=== PATIENT | male | born 1945 | race Caucasian/White ===

== ENCOUNTER 2017-07-29 14:16 | Emergency (ER) | payer MEDICARE ==
[2017-07-29 14:32] VITALS: BP 198/122
[2017-07-29] MEDS ORDERED: Sodium Chloride 0.9% 10 ML Syringe FLUSH PRN (14:43)
--- NOTE | 2017-07-29 15:03 | EDM.PDOC ---
ED HPI GENERAL MEDICAL PROBLEM - General Chief Complaint: Cardiovascular Problem Stated Complaint: SENT BY [facility] Time Seen by Provider: 07/29/17 14:37 Source of Information: Reports: Patient, Provider History Limitations: Reports: No Limitations - History of Present Illness INITIAL COMMENTS - FREE TEXT/NARRATIVE: The patient presents from home by the recommendation of his primary care doctor Dr Villela. He was seeing her for dysnea. This has been going on for weeks. She did an echo that showed a small to moderate pericardial effusion. They did not get a good look at the aortic arch so a CT of his chest was down. The CT of his chest showed a large pericardial effusion and moderate bilateral pleural effusions, greater on the right. Dr Villela got those results today and called the cardiothoracic surgeon at [facility] in [place] and he recommended the patient go to the ER and then be transferred to [facility]. He has shortness of breath with exertion. He has no chest pain. He has no abdominal pain, nausea or vomiting. He has no fever, chills, or cough. Onset: Gradual Duration: Week(s): Severity: Moderate Improves with: Reports: Immobilization Worsens with: Reports: Movement Associated Symptoms: Reports: Shortness of Breath. Denies: Chest Pain, Cough, Fever/Chills, Headaches, Loss of Appetite, Nausea/Vomiting - Related Data Allergies Allergy/AdvReac Type Severity Reaction Status Date / Time No Known Allergies Allergy Verified 06/05/15 14:04 Home Meds: Home Meds Finasteride 5 mg PO DAILY 06/05/15 [History] Mupirocin Oint [Bactroban Oint] 22 gm TOP TID #1 tube 06/05/15 [Rx] Furosemide [Lasix] 40 mg PO DAILY 07/29/17 [History] Past Medical History Cardiovascular History: Reports: Arrhythmia, Heart Failure Genitourinary History: Reports: Other (See Below) Other Genitourinary History: Prostate reduction Social & Family History - Family History Family Medical History: Noncontributory - Tobacco Use Smoking Status *Q: Former Smoker Years of Tobacco use: 20 Packs/Tins Daily: 0.5 Used Tobacco, but Quit: Yes Month Tobacco Last Used: 2 - Caffeine Use Caffeine Use: Reports: Coffee, Soda - Recreational Drug Use Recreational Drug Use: No ED ROS GENERAL - Review of Systems Review Of Systems: See Below Constitutional: Reports: No Symptoms HEENT: Reports: No Symptoms Respiratory: Reports: Shortness of Breath Cardiovascular: Reports: Edema. Denies: Chest Pain Endocrine: Reports: No Symptoms GI/Abdominal: Reports: No Symptoms ED EXAM, GENERAL - Physical Exam Exam: See Below Exam Limited By: No Limitations General Appearance: Alert, No Apparent Distress Ears: Normal External Exam Nose: Normal Inspection Head: Atraumatic, Normocephalic Neck: Normal Inspection Respiratory/Chest: No Respiratory Distress, Lungs Clear, Normal Breath Sounds Cardiovascular: Regular Rate, Rhythm, No Edema, No Murmur GI/Abdominal: Normal Bowel Sounds, Soft, Non-Tender, No Organomegaly Back Exam: Normal Inspection Extremities: Normal Inspection Neurological: Alert, Oriented, No Motor/Sensory Deficits EKG INTERPRETATION EKG Date: 07/29/17 Time: 14:34 Rhythm: Other (Sinus tachycardia) Rate (Beats/Min): 101 [place]: Normal P-Wave: Present QRS: Normal ST-T: Other (Flattened waves in the lateral leads) QT: Normal Course - Vital Signs Last Recorded V/S: Last Vital Signs Temp 97.6 F 07/29/17 14:30 Pulse 104 H 07/29/17 14:30 Resp 18 07/29/17 14:30 BP 198/122 H 07/29/17 14:30 Pulse Ox 95 07/29/17 14:30 - Orders/Labs/Meds Orders: Active Orders 24 hr Category Date Time Status Cardiac Monitoring [RC] . DIRECTED Care 07/29/17 14:43 Active EKG Documentation Completion [RC] STAT Care 07/29/17 14:44 Active Peripheral IV Care [RC] . DIRECTED Care 07/29/17 14:44 Active CBC WITH AUTO DIFF [HEME] Stat Lab 07/29/17 14:43 Ordered COMPREHENSIVE METABOLIC PN,CMP [CHEM] Stat Lab 07/29/17 14:43 Ordered PRO B-TYPE NATRIUR PEPT,BNPPRO [CHEM] Stat Lab 07/29/17 14:45 Ordered TROPONIN I [CHEM] Stat Lab 07/29/17 14:43 Ordered Sodium Chloride 0.9% [Saline Flush] Med 07/29/17 14:43 Active 10 ml FLUSH ASDIRECTED PRN Peripheral IV Insertion Adult [OM.PC] Stat Oth 07/29/17 14:43 Ordered Medication Orders Sodium Chloride (Saline Flush) 10 ml FLUSH ASDIRECTED PRN PRN Reason: Keep Vein Open Meds: Medications Generic Name Dose Route Start Last Admin Trade Name Freq PRN Reason Stop Dose Admin Sodium Chloride 10 ml 07/29/17 14:43 Saline Flush FLUSH ASDIRECTED PRN Keep Vein Open - Re-Assessments/Exams Free Text/Narrative Re-Assessment/Exam: 07/29/17 15:08 I ordered an IV saline lock, EKG and labs. His EKG shows a sinus tachycardia with flattened T waves in the lateral leads. I called [facility] in [place] and Dr Bird wants him in [place]. I also talked with the hospitalist Dr Salomon and she accepted the patient. Departure - Departure Time of Disposition: 15:15 Disposition: DC/Tfer to [facility] 02 Reason for Transfer *Q: Other Condition: Serious Clinical Impression: Pericardial effusion Referrals: Alejandra Villela MD [Primary Care Provider] - - My Orders Last 24 Hours: My Active Orders 07/29/17 14:43 Cardiac Monitoring [RC] . DIRECTED CBC WITH AUTO DIFF [HEME] Stat COMPREHENSIVE METABOLIC PN,CMP [CHEM] Stat TROPONIN I [CHEM] Stat Sodium Chloride 0.9% [Saline Flush] 10 ml FLUSH ASDIRECTED PRN Peripheral IV Insertion Adult [OM.PC] Stat 07/29/17 14:44 EKG Documentation Completion [RC] STAT Peripheral IV Care [RC] . DIRECTED 07/29/17 14:45 PRO B-TYPE NATRIUR PEPT,BNPPRO [CHEM] Stat - Assessment/Plan Last 24 Hours: My Active Orders 07/29/17 14:43 Cardiac Monitoring [RC] . DIRECTED CBC WITH AUTO DIFF [HEME] Stat COMPREHENSIVE METABOLIC PN,CMP [CHEM] Stat TROPONIN I [CHEM] Stat Sodium Chloride 0.9% [Saline Flush] 10 ml FLUSH ASDIRECTED PRN Peripheral IV Insertion Adult [OM.PC] Stat 07/29/17 14:44 EKG Documentation Completion [RC] STAT Peripheral IV Care [RC] . DIRECTED 07/29/17 14:45 PRO B-TYPE NATRIUR PEPT,BNPPRO [CHEM] Stat
== END 2017-07-29 16:15 ==
LOC: JD.ED 14:16
DX: I31.3 Pericardial effusion (noninflammatory) (principal); I50.9 Heart failure, unspecified; Z87.891 Personal history of nicotine dependence; Z79.899 Other long term (current) drug therapy
CPT/HCPCS: 36415; 80053; 83880; 84484; 85025; 93005; 99285-25; J7050

== ENCOUNTER 2019-07-28 15:02 | Emergency (ER) | payer MEDICARE ==
[2019-07-28] MEDS ORDERED: Sodium Chloride 0.9% 10 ML Syringe FLUSH PRN (15:21)
[2019-07-28] MEDS ORDERED: Vancomycin 2 GM in Dextrose 5% in Water 250 ML IV ONE ×2 (15:21)
[2019-07-28 15:28] VITALS: BP 154/87; PULSE 109
[2019-07-28] MEDS ORDERED: Vancomycin 2 GM in Sodium Chloride 0.9% 500 ML IV ONE (15:54)
--- NOTE | 2019-07-28 16:09 | CR ---
Left foot: 3 views left foot were obtained. Comparison: No prior foot exam. Plantar spur is noted. Hammertoe deformities appear to be present. Cystic change is noted within the 1st metatarsal head appears to be old. Possible erosions are noted within the base of the distal 1st metatarsal head seen on the lateral view. Adjacent soft tissue swelling is seen. No acute fracture, dislocation or other bony abnormality is seen. Impression: 1. Plantar spur. 2. Probable hammertoe deformities. 3. Possible early osteomyelitis within the distal 1st metatarsal head. Diagnostic code #3 This report was dictated in [place] Standard Time
[2019-07-28] MEDS ORDERED: cefTRIAXone 2 GM in Sodium Chloride 0.9% 100 ML IV ONE (17:30)
--- NOTE | 2019-07-28 17:41 | EDM.PDOC ---
ED HPI GENERAL MEDICAL PROBLEM - General Chief Complaint: Lower Extremity Injury/Pain Stated Complaint: L FOOT TOE SWOLLEN Time Seen by Provider: 07/28/19 15:15 Source of Information: Reports: Patient, Provider History Limitations: Reports: No Limitations - History of Present Illness INITIAL COMMENTS - FREE TEXT/NARRATIVE: The patient presents from [facility] for left great toe infections. Dr Villela sent the patient over. The patient says this has been going on for about 10 to 12 days. He is type II diabetic. He has a sore to the pad of the left great toe. He has redness, ecchymosis of the toe and red streaking of his foot and lower leg. He has no fever, chills, cough, congestion, chest pain, shortness of breath, abdominal pain, nausea or vomiting. Onset: Gradual Duration: Day(s): (12) Location: Reports: Lower Extremity, Left Quality: Reports: Ache Severity: Mild Improves with: Reports: None Worsens with: Reports: None Associated Symptoms: Reports: No Other Symptoms Left Lower Foot Pain Score (Numeric/FACES): 2 - Related Data Allergies Allergy/AdvReac Type Severity Reaction Status Date / Time No Known Allergies Allergy Verified 06/05/15 14:04 Home Meds: Home Meds Finasteride 5 mg PO DAILY 06/05/15 [History] Mupirocin Oint [Bactroban Oint] 22 gm TOP TID #1 tube 06/05/15 [Rx] Furosemide [Lasix] 80 mg PO DAILY 07/29/17 [History] Aspirin 81 mg PO DAILY 07/28/19 [History] Lisinopril [Zestril] 20 mg PO DAILY 07/28/19 [History] Metoprolol Succinate 50 mg PO DAILY 07/28/19 [History] Potassium Chloride 20 meq PO DAILY 07/28/19 [History] SitaGLIPtin [Januvia] 50 mg PO DAILY 07/28/19 [History] Past Medical History HEENT History: Reports: Impaired Vision Cardiovascular History: Reports: Arrhythmia, Heart Failure Gastrointestinal History: Reports: Other (See Below) Other Gastrointestinal History: constipation Genitourinary History: Reports: Other (See Below) Other Genitourinary History: Prostate reduction Endocrine/Metabolic History: Reports: Diabetes, Type II Social & Family History - Family History Family Medical History: Noncontributory - Tobacco Use Smoking Status *Q: Former Smoker Used Tobacco, but Quit: Yes Month/Year Tobacco Last Used: 2 - Caffeine Use Caffeine Use: Reports: Coffee - Recreational Drug Use Recreational Drug Use: No Review of Systems - Review of Systems Review Of Systems: See Below Constitutional: Reports: No Symptoms Eyes: Reports: No Symptoms Ears: Reports: No Symptoms Nose: Reports: No Symptoms Mouth/Throat: Reports: No Symptoms Respiratory: Reports: No Symptoms Cardiovascular: Reports: No Symptoms GI/Abdominal: Reports: No Symptoms Genitourinary: Reports: No Symptoms Musculoskeletal: Reports: Other (Left great toe redness and swelling) ED EXAM, GENERAL - Physical Exam Exam: See Below Exam Limited By: No Limitations General Appearance: Alert, No Apparent Distress Ears: Normal External Exam Nose: Normal Inspection Head: Atraumatic, Normocephalic Neck: Normal Inspection Respiratory/Chest: No Respiratory Distress, Lungs Clear, Normal Breath Sounds Cardiovascular: Regular Rate, Rhythm, No Edema, No Murmur GI/Abdominal: Soft, Non-Tender, No Organomegaly, No Mass Extremities: Other (Ulcer to the pad of the left great toe. Erythema and ecchymosis to the distal toe with edema and erythema that extends into the foot and up to the lower leg.) Course - Vital Signs Last Recorded V/S: Last Vital Signs Temp 97.4 F 07/28/19 15:24 Pulse 109 H 07/28/19 15:24 Resp 20 07/28/19 15:24 BP 154/87 H 07/28/19 15:24 Pulse Ox 95 07/28/19 15:24 - Orders/Labs/Meds Orders: Active Orders 24 hr Category Date Time Status CULTURE BLOOD [BC] Stat Lab 07/28/19 15:40 Received CULTURE BLOOD [BC] Stat Lab 07/28/19 15:48 Received UA W/ALMA RFLX IF INDICATED [URIN] Stat Lab 07/28/19 15:21 Ordered Sodium Chloride 0.9% [Saline Flush] Med 07/28/19 15:21 Active 10 ml FLUSH ASDIRECTED PRN cefTRIAXone [Rocephin] 2 gm Med 07/28/19 17:30 Ordered Sodium Chloride 0.9% [Normal Saline] 100 ml IV ONETIME Blood Culture x2 Reflex Set [OM.PC] Stat Oth 07/28/19 15:21 Ordered Saline Lock Insert [OM.PC] Stat Oth 07/28/19 15:21 Ordered Severe Sepsis Onset Time [OM.PC] Stat Oth 07/28/19 15:21 Ordered Medication Orders Ceftriaxone Sodium 2 gm/ (Sodium Chloride) 100 mls @ 200 mls/hr IV ONETIME ONE Stop: 07/28/19 17:59 Sodium Chloride (Saline Flush) 10 ml FLUSH ASDIRECTED PRN PRN Reason: Keep Vein Open Last Admin: 07/28/19 15:47 Dose: 10 ml Labs: Laboratory Tests 07/28/19 07/28/19 07/28/19 Range/Units 15:40 15:40 15:40 WBC 7.88 (4.23-9.07) K/mm3 RBC 5.07 (4.63-6.08) M/mm3 Hgb 15.2 D (13.7-17.5) gm/dl Hct 44.8 (40.1-51.0) % MCV 88.4 (79.0-92.2) fl MCH 30.0 (25.7-32.2) pg MCHC 33.9 (32.2-35.5) g/dl RDW Std Deviation 43.2 (35.1-43.9) fL Plt Count 137 L (163-337) K/mm3 MPV 12.6 H (9.4-12.3) fl Neutrophils % (Manual) 83 H (40-60) % Band Neutrophils % 0 (0-10) % Lymphocytes % (Manual) 9 L (20-40) % Atypical Lymphs % 0 % Monocytes % (Manual) 8 (2-10) % Eosinophils % (Manual) 0 L (0.8-7.0) % Basophils % (Manual) 0 L (0.2-1.2) Platelet Estimate Adequate Plt Morphology Comment See note RBC Morph Comment Normal PT 11.6 (9.7-12.0) SECONDS INR 1.07 Sodium 135 L (136-145) mEq/L Potassium 4.2 (3.5-5.1) mEq/L Chloride 97 L (98-107) mEq/L Carbon Dioxide 27 (21-32) mEq/L Anion Gap 15.2 H (5-15) BUN 29 H (7-18) mg/dL Creatinine 1.2 (0.7-1.3) mg/dL Est Cr Clr Drug Dosing 61.97 mL/min Estimated GFR (MDRD) 60 (>60) mL/min BUN/Creatinine Ratio 24.2 H (14-18) Glucose 182 H (83-115) mg/dL Lactic Acid (0.4-2.0) mmol/L Calcium 9.6 (8.5-10.1) mg/dL Total Bilirubin 1.3 H (0.2-1.0) mg/dL AST 15 (15-37) U/L ALT 27 (16-63) U/L Alkaline Phosphatase 82 (46-116) U/L C-Reactive Protein 1.5 H* (<1.0) mg/dL Total Protein 7.6 (6.4-8.2) g/dl Albumin 3.9 (3.4-5.0) g/dl Globulin 3.7 gm/dL Albumin/Globulin Ratio 1.1 (1-2) 07/28/19 Range/Units 15:40 WBC (4.23-9.07) K/mm3 RBC (4.63-6.08) M/mm3 Hgb (13.7-17.5) gm/dl Hct (40.1-51.0) % MCV (79.0-92.2) fl MCH (25.7-32.2) pg MCHC (32.2-35.5) g/dl RDW Std Deviation (35.1-43.9) fL Plt Count (163-337) K/mm3 MPV (9.4-12.3) fl Neutrophils % (Manual) (40-60) % Band Neutrophils % (0-10) % Lymphocytes % (Manual) (20-40) % Atypical Lymphs % % Monocytes % (Manual) (2-10) % Eosinophils % (Manual) (0.8-7.0) % Basophils % (Manual) (0.2-1.2) Platelet Estimate Plt Morphology Comment RBC Morph Comment PT (9.7-12.0) SECONDS INR Sodium (136-145) mEq/L Potassium (3.5-5.1) mEq/L Chloride (98-107) mEq/L Carbon Dioxide (21-32) mEq/L Anion Gap (5-15) BUN (7-18) mg/dL Creatinine (0.7-1.3) mg/dL Est Cr Clr Drug Dosing mL/min Estimated GFR (MDRD) (>60) mL/min BUN/Creatinine Ratio (14-18) Glucose (83-115) mg/dL Lactic Acid 0.9 (0.4-2.0) mmol/L Calcium (8.5-10.1) mg/dL Total Bilirubin (0.2-1.0) mg/dL AST (15-37) U/L ALT (16-63) U/L Alkaline Phosphatase (46-116) U/L C-Reactive Protein (<1.0) mg/dL Total Protein (6.4-8.2) g/dl Albumin (3.4-5.0) g/dl Globulin gm/dL Albumin/Globulin Ratio (1-2) Meds: Medications Generic Name Dose Route Start Last Admin Trade Name Freq PRN Reason Stop Dose Admin Ceftriaxone Sodium 2 gm/ 100 mls @ 200 mls/hr 07/28/19 17:30 Sodium Chloride IV 07/28/19 17:59 ONETIME ONE Sodium Chloride 10 ml 07/28/19 15:21 07/28/19 15:47 Saline Flush FLUSH 10 ml ASDIRECTED PRN Administration Keep Vein Open Discontinued Medications Generic Name Dose Route Start Last Admin Trade Name Freq PRN Reason Stop Dose Admin Vancomycin HCl 2 gm/ Sodium 500 mls @ 250 mls/hr 07/28/19 15:54 07/28/19 16: 09 Chloride IV 07/28/19 17:20 250 mls/hr ONETIME ONE Administration - Re-Assessments/Exams Free Text/Narrative Re-Assessment/Exam: 07/28/19 17:37 I ordered an IV vancomycin 2 grams, blood cultures, lactic acid, labs and an x- ray of his toe. We do not have MRI available at this time. His CBC is normal. His INR is negative. His Na is low at 135. His anion gap is elevated at 15.2. His glucose is elevated at 182. His lactic acid is normal. His CRP is elevated at 1.5. His total bili is elevated at 1.3. The x-ray shows plantar spur. Probable hammertoe deformities. Possible early osteomyelitis within the distal 1st metatarsal head. I have added rocephin 2 grams IV 07/28/19 17:42 He needs to be admitted. We do not have ortho or MRI available this evening. I called [facility] in [place] and talked with Dr Ordaz the hospitalist target aircraft controller and she accepted the patient. I will need to sent him by ambulance. Departure - Departure Time of Disposition: 17:45 Disposition: DC/Tfer to Acute Hospital 02 Condition: Serious Clinical Impression: Cellulitis of great toe, left, Cellulitis of left foot Osteomyelitis of left foot Qualifiers: Osteomyelitis type: unspecified type Qualified Code(s): M86.9 - Osteomyelitis, unspecified - Discharge Information Referrals: Alejandra Villela MD [Primary Care Provider] - Sepsis Event Note - Evaluation Sepsis Screening Result: Possible Sepsis Risk - Focused Exam Vital Signs: Vital Signs Temp Pulse Resp BP Pulse Ox 07/28/19 15:24 97.4 F 109 H 20 154/87 H 95 Date Exam was Performed: 07/28/19 Time Exam was Performed: 17:32 - My Orders Last 24 Hours: My Active Orders 07/28/19 15:21 UA W/ALMA RFLX IF INDICATED [URIN] Stat Sodium Chloride 0.9% [Saline Flush] 10 ml FLUSH ASDIRECTED PRN Blood Culture x2 Reflex Set [OM.PC] Stat Saline Lock Insert [OM.PC] Stat Severe Sepsis Onset Time [OM.PC] Stat 07/28/19 15:40 CULTURE BLOOD [BC] Stat 07/28/19 15:48 CULTURE BLOOD [BC] Stat 07/28/19 17:30 cefTRIAXone [Rocephin] 2 gm Sodium Chloride 0.9% [Normal Saline] 100 ml IV ONETIME - Assessment/Plan Last 24 Hours: My Active Orders 07/28/19 15:21 UA W/ALMA RFLX IF INDICATED [URIN] Stat Sodium Chloride 0.9% [Saline Flush] 10 ml FLUSH ASDIRECTED PRN Blood Culture x2 Reflex Set [OM.PC] Stat Saline Lock Insert [OM.PC] Stat Severe Sepsis Onset Time [OM.PC] Stat 07/28/19 15:40 CULTURE BLOOD [BC] Stat 07/28/19 15:48 CULTURE BLOOD [BC] Stat 07/28/19 17:30 cefTRIAXone [Rocephin] 2 gm Sodium Chloride 0.9% [Normal Saline] 100 ml IV ONETIME
== END 2019-07-28 18:28 ==
LOC: JD.ED 15:02
DX: L03.032 Cellulitis of left toe (principal); L03.116 Cellulitis of left lower limb; E11.69 Type 2 diabetes mellitus with other specified complication; M86.9 Osteomyelitis, unspecified; I50.9 Heart failure, unspecified; Z79.82 Long term (current) use of aspirin; Z79.84 Long term (current) use of oral hypoglycemic drugs; Z87.891 Personal history of nicotine dependence
CPT/HCPCS: 36415; 73630; 80053; 81001; 83605; 85007; 85027; 85610; 86140; 87040; 96365; 96366; 96375; 99285; J0696; J3370; J7040; J7050; 87077; 87184; 99284

== ENCOUNTER 2022-02-27 13:04 | Inpatient (IN) | payer MEDICARE ==
[2022-02-27] MEDS ORDERED: Sodium Chloride 0.9% 10 ML Syringe FLUSH PRN (13:45)
[2022-02-27] MEDS ORDERED: Sodium Chloride 0.9% 1,000 ML IV STA (15:05)
[2022-02-27] MEDS ORDERED: 50% Dextrose in Water 50 ML Syringe IVPUSH PRN (16:59)
[2022-02-27] MEDS: Enoxaparin 40 MG/0.4 ML Syringe SUBCUT SCH (17:52)
[2022-02-27] MEDS: Insulin Regular, Human 100 Units/ML 3 ML Vial SUBCUT SCH ×2 (17:54→19:30)
[2022-02-27] MEDS: cefTRIAXone 2 GM in Sodium Chloride 0.9% 100 ML IV SCH (18:51)
[2022-02-27] MEDS: atorvaSTATin 40 MG Tab PO SCH (23:18)
[2022-02-28 06:35] LABS: HEMOGLOBIN A1C 7.4 %
[2022-02-28] MEDS: Pantoprazole 40 MG Tab.CR PO SCH (07:31)
[2022-02-28] MEDS: metFORMIN 500 MG Tab PO SCH ×2 (07:31→17:29)
[2022-02-28] MEDS: Metoprolol Succinate 50 MG Tab.ER PO SCH (08:52)
[2022-02-28] MEDS: Finasteride 5 MG Tab PO SCH (08:52)
[2022-02-28] MEDS: Insulin Regular, Human 100 Units/ML 3 ML Vial SUBCUT SCH ×3 (08:53→18:23)
[2022-02-28] MEDS ORDERED: METFORMIN HCL 500 MG PO SCH (09:00)
[2022-02-28] MEDS ORDERED: Magnesium Sulfate/Water 2 GM in Premix Bag 1 BAG IV ONE (14:30)
[2022-02-28] MEDS ORDERED: Magnesium Sulfate (4.06 MEQ/ML) 5 GM/10 ML SDV IV ONE (15:00)
[2022-02-28] MEDS: Enoxaparin 40 MG/0.4 ML Syringe SUBCUT SCH (17:28)
[2022-02-28] MEDS: cefTRIAXone 2 GM in Sodium Chloride 0.9% 100 ML IV SCH (18:21)
[2022-02-28] MEDS: atorvaSTATin 40 MG Tab PO SCH (21:27)
[2022-03-01] MEDS: metFORMIN 500 MG Tab PO SCH ×2 (06:55→18:01)
[2022-03-01] MEDS: Pantoprazole 40 MG Tab.CR PO SCH (06:55)
[2022-03-01] MEDS: Metoprolol Succinate 50 MG Tab.ER PO SCH (09:24)
[2022-03-01] MEDS: Finasteride 5 MG Tab PO SCH (09:25)
[2022-03-01] MEDS: Insulin Regular, Human 100 Units/ML 3 ML Vial SUBCUT SCH ×3 (09:26→19:00)
[2022-03-01] MEDS: Enoxaparin 40 MG/0.4 ML Syringe SUBCUT SCH (18:02)
[2022-03-01] MEDS: cefTRIAXone 2 GM in Sodium Chloride 0.9% 100 ML IV SCH (18:03)
[2022-03-01] MEDS: atorvaSTATin 40 MG Tab PO SCH (21:50)
[2022-03-02] MEDS: Pantoprazole 40 MG Tab.CR PO SCH (06:44)
[2022-03-02] MEDS: metFORMIN 500 MG Tab PO SCH ×2 (06:44→17:41)
[2022-03-02] MEDS: Metoprolol Succinate 50 MG Tab.ER PO SCH (08:47)
[2022-03-02] MEDS: Finasteride 5 MG Tab PO SCH (08:47)
[2022-03-02] MEDS: Insulin Regular, Human 100 Units/ML 3 ML Vial SUBCUT SCH ×3 (09:18→18:26)
[2022-03-02] MEDS: Enoxaparin 40 MG/0.4 ML Syringe SUBCUT SCH (17:43)
[2022-03-02] MEDS: cefTRIAXone 2 GM in Sodium Chloride 0.9% 100 ML IV SCH (18:27)
[2022-03-02] MEDS: atorvaSTATin 40 MG Tab PO SCH (21:02)
[2022-03-03] MEDS: metFORMIN 500 MG Tab PO SCH ×2 (06:29→17:07)
[2022-03-03] MEDS: Pantoprazole 40 MG Tab.CR PO SCH (06:29)
[2022-03-03] MEDS: Finasteride 5 MG Tab PO SCH (08:21)
[2022-03-03] MEDS: Metoprolol Succinate 50 MG Tab.ER PO SCH (08:23)
[2022-03-03] MEDS: Insulin Regular, Human 100 Units/ML 3 ML Vial SUBCUT SCH ×3 (08:26→18:14)
[2022-03-03] MEDS: Enoxaparin 40 MG/0.4 ML Syringe SUBCUT SCH (17:07)
[2022-03-03] MEDS: cefTRIAXone 2 GM in Sodium Chloride 0.9% 100 ML IV SCH (18:16)
[2022-03-03] MEDS: atorvaSTATin 40 MG Tab PO SCH (20:38)
[2022-03-04] MEDS: Pantoprazole 40 MG Tab.CR PO SCH (06:19)
[2022-03-04] MEDS: metFORMIN 500 MG Tab PO SCH ×2 (06:19→17:50)
[2022-03-04] MEDS: Metoprolol Succinate 50 MG Tab.ER PO SCH (09:35)
[2022-03-04] MEDS: Finasteride 5 MG Tab PO SCH (09:35)
[2022-03-04] MEDS: Insulin Regular, Human 100 Units/ML 3 ML Vial SUBCUT SCH ×3 (09:39→19:00)
[2022-03-04 13:36] LABS: HEMOGLOBIN A1C 7.3 %
[2022-03-04] MEDS: Enoxaparin 40 MG/0.4 ML Syringe SUBCUT SCH (17:51)
[2022-03-04] MEDS: cefTRIAXone 2 GM in Sodium Chloride 0.9% 100 ML IV SCH (18:02)
[2022-03-04] MEDS ORDERED: Lisinopril 20 MG Tab PO ONE (18:41)
[2022-03-04] MEDS: atorvaSTATin 40 MG Tab PO SCH (20:03)
[2022-03-05] MEDS ORDERED: Piperacillin/Tazobactam 4.5 GM in Sodium Chloride 0.9% 100 ML IV ONE (06:00)
[2022-03-05] MEDS: Pantoprazole 40 MG Tab.CR PO SCH (06:14)
[2022-03-05] MEDS: metFORMIN 500 MG Tab PO SCH ×2 (06:14→16:18)
[2022-03-05] MEDS ORDERED: Lisinopril 20 MG Tab PO SCH (09:00)
[2022-03-05] MEDS ORDERED: Furosemide 40 MG Tab PO SCH (09:00)
[2022-03-05] MEDS ORDERED: VANCOmycin 1.25 GM/250 ML 1.25 GM in Premix Bag 1 BAG IV SCH (09:00)
[2022-03-05] MEDS: Finasteride 5 MG Tab PO SCH (09:50)
[2022-03-05] MEDS: Metoprolol Succinate 50 MG Tab.ER PO SCH (09:51)
[2022-03-05] MEDS: Insulin Regular, Human 100 Units/ML 3 ML Vial SUBCUT SCH ×3 (10:17→18:03)
[2022-03-05] MEDS ORDERED: Lisinopril 20 MG Tab PO ONE (12:00)
[2022-03-05] MEDS ORDERED: Piperacillin/Tazobactam 4.5 GM in Sodium Chloride 0.9% 100 ML IV SCH (14:00)
[2022-03-05] MEDS ORDERED: DAPTOmycin 700 MG in Sodium Chloride 0.9% 50 ML IV ONE ×2 (14:45→15:30)
[2022-03-05] MEDS ORDERED: cefTRIAXone 2 GM in Sodium Chloride 0.9% 100 ML IV ONE (15:30)
[2022-03-05] MEDS: Enoxaparin 40 MG/0.4 ML Syringe SUBCUT SCH (17:20)
[2022-03-06] MEDS: metFORMIN 500 MG Tab PO SCH (06:13)
[2022-03-06] MEDS: Pantoprazole 40 MG Tab.CR PO SCH (06:13)
[2022-03-06] MEDS: Metoprolol Succinate 50 MG Tab.ER PO SCH (08:51)
[2022-03-06] MEDS: Finasteride 5 MG Tab PO SCH (08:51)
[2022-03-06] MEDS ORDERED: Magnesium Sulfate/Water 2 GM in Premix Bag 1 BAG IV ONE (09:00)
[2022-03-06] MEDS ORDERED: Lisinopril 20 MG Tab PO SCH (09:00)
[2022-03-06] MEDS ORDERED: Furosemide 80 MG Tab PO SCH (09:00)
[2022-03-06] MEDS ORDERED: amLODIPine 5 MG Tab PO SCH (09:00)
[2022-03-06] MEDS: Insulin Regular, Human 100 Units/ML 3 ML Vial SUBCUT SCH ×2 (09:02→13:08)
[2022-03-06] MEDS ORDERED: cefTRIAXone 2 GM in Sodium Chloride 0.9% 100 ML IV SCH (13:00)
[2022-03-06] MEDS ORDERED: DAPTOmycin 700 MG in Sodium Chloride 0.9% 50 ML IV SCH (13:00)
[2022-03-06 13:14] VITALS: BP 165/84; PULSE 90
== END 2022-03-06 14:00 | disposition home or self-care (01) | DRG 638 ==
LOC: JD.ED 13:04 → JD.MS 16:04
PROVIDERS: ADMIT Internal Medicine Cardiovascular Disease; ATTEND Internal Medicine Cardiovascular Disease
PROC: 02HV33Z Insertion of Infusion Device into Superior Vena Cava, Percutaneous Approach (ICD-10-PCS; principal; 2022-03-05)
DX: E11.622 Type 2 diabetes mellitus with other skin ulcer (principal); L98.499 Non-pressure chronic ulcer of skin of other sites with unspecified severity; E11.69 Type 2 diabetes mellitus with other specified complication; M86.8X7 Other osteomyelitis, ankle and foot; M86.9 Osteomyelitis, unspecified; I50.32 Chronic diastolic (congestive) heart failure; I50.9 Heart failure, unspecified; E11.621 Type 2 diabetes mellitus with foot ulcer; I05.0 Rheumatic mitral stenosis; E11.42 Type 2 diabetes mellitus with diabetic polyneuropathy; H54.7 Unspecified visual loss; K21.9 Gastro-esophageal reflux disease without esophagitis; E78.5 Hyperlipidemia, unspecified; N40.0 Benign prostatic hyperplasia without lower urinary tract symptoms; L97.519 Non-pressure chronic ulcer of other part of right foot with unspecified severity; I11.0 Hypertensive heart disease with heart failure; Z79.84 Long term (current) use of oral hypoglycemic drugs; Z79.899 Other long term (current) drug therapy; Z20.822 Contact with and (suspected) exposure to COVID-19
CPT/HCPCS: 36415; 36568; 36569; 71045; 71045-26; 73700-26-RT; 73700-RT; 80048; 80053; 80061; 80202; 82550; 82947; 83036; 83605; 83735; 84443; 85025; 86140; 87040; 92523-GN; 93306; 93923; 97162-GP; 97166-GO; 97597-GP; 99222; 99232; 99233; 99239; 99284; A9270-GY; C1751; J0696; J0878; J1650; J1815-GY; J2543; J3370; J3475; J3490; J7030; J7050; U0002